=== PATIENT | female | born 1945 | race Caucasian/White ===

== ENCOUNTER 2025-02-03 17:08 | Emergency (ER) | payer MEDICARE, SELFPAY ==
--- NOTE | 2025-02-03 17:15 | ECG_ITS ---
Test Date: 2025-02-03 17:21:38 Measurements Intervals [place] Rate: 71 P: 87 OH: 173 QRS: 28 QRSD: 88 T: 60 QT: 351 QTc: 381 Interpretive Statements SINUS RHYTHM WITH SINUS ARRHYTHMIA BASELINE ARTIFACT- I, II, III, AVR, AVL, AVF, V4 NORMAL ECG No previous ECG available for comparison Electronically Signed On 02-03-2025 20:33:56 RELIGION DEPARTMENT CHAIR by Conrad Bowie D.O.
[2025-02-03 17:26] VITALS: BP 144/76; PULSE 80; RESP 20; TEMP 36.7; O2SAT 96
--- NOTE | 2025-02-03 17:36 | ED_ITS ---
HPI - SOB/Dyspnea General Chief Complaint: Shortness of Breath/Dyspnea Stated Complaint: Fever/Dizziness/Shortness of Breath Time Seen by Provider: 02/03/25 17:15 Source: patient and RN notes reviewed Mode of arrival: ambulatory Limitations: no limitations History of Present Illness HPI Narrative: 80-year-old female presents Express Care complaining of shortness of breath approximately 3 weeks. Patient says not getting much better, she says is worse with exertion. Denies any chest pain. Patient reports a mild cough, dizziness, feeling off balance and feverish. Patient denies any palpitations, lightheadedn ess, loss of consciousness, abdominal pain, nausea vomiting, diarrhea, any other upper respiratory symptoms, any other complaints. Has a history of hypertension, acid reflux. Related Data Home Medications ?Medication ?Instructions ?Recorded ?Confirmed ?Last Taken ?Type buspirone 10 mg tablet mg 02/03/25 Unknown History citalopram 20 mg tablet mg 02/03/25 Unknown History famotidine 20 mg tablet mg 02/03/25 Unknown History fluticasone propionate 50 intranasal 02/03/25 Unknown History mcg/actuation nasal spray,suspension hydrochlorothiazide 25 mg tablet mg 02/03/25 Unknown History lisinopril 5 mg tablet mg 02/03/25 Unknown History pantoprazole 40 mg tablet,delayed mg PO 02/03/25 Unkn own History release Allergies Allergy/AdvReac Type Severity Reaction Status Date / Time naproxen Allergy Unknown Rash Verified 02/03/25 17:11 No Known Allergies Allergy Unverified 02/29/16 17:16 Review of Systems Review of Systems: CONSTITUTIONAL: Positive for tactile fevers. Negative for body aches, chills, or sweats. EYES: Denies visual changes, redness, or discharge. ENT: Denies rhinorrhea, congestion, sore throat, or otalgia. CARDIOVASCULAR: Denies chest pain, palpitations, chest pain with exertion, lightheadedness, or edema. Positive for dizziness RESPIRATORY: Positive for cough and dyspnea with exertion. GASTROINTESTINAL: Denies abdominal pain, nausea, vomiting, or diarrhea. GENITOURINARY: Denies dysuria or hematuria. SKIN: Denies rash or itching. MUSCULOSKELETAL: Denies back pain, joint pain, or myalgia. NEUROLOGIC: Denies headache, numbness, or weakness. PSYCHIATRIC: Denies anxiety or depression. All other systems reviewed are negative, except as documented in HPI. PMFSH Social History Social History Smoking status: Never smoker Alcohol intake: never Comments At the time of my signature, I reviewed and agree with the nursing past medical, surgical, social, and family history. There is no relevant family history pertinent to the patient complaint. Exam Narrative: GENERAL: This is a well-nourished, well-developed adult, in no apparent distress. They are non ill-appearing, nontoxic appearing. HEAD: normocephalic, atraumatic. EYES: Sclera clear/white. Conjunctiva normal. Vision is grossly intact. Extraocular movements intact EARS: External ears normal,. Hearing grossly intact. NOSE: External nose normal THROAT: Mucous membranes moist, NECK: Neck supple, CARDIOVASCULAR: Regular rate and rhythm without murmurs, gallops, or rubs. RESPIRATORY: Clear to auscultation. Breath sounds equal bilaterally. No wheezes, rales, or rhonchi. SKIN: warm, Dry, intact with no suspicious lesions or rash, good texture and turgor. NEURO: awake, alert, and oriented to person, place and time. There were no obvious focal neurologic abnormalities. EXTREMITIES: No joint tenderness, effusion, or edema noted. BACK: Nontender without deformity. Course Course Level of Care: Express Care Visit Vital Signs Vital signs: Vital Signs Temperature 98.1 F 02/03/25 17:26 Pulse Rate 80 02/03/25 17:26 Respiratory Rate 20 02/03/25 17:26 Blood Pressure 144/76 H 02/03/25 17:26 Pulse Oximetry 96 02/03/25 17:26 Oxygen Delivery Room Air 02/03/25 17:26 Temperature 98.1 F 02/03/25 17:26 Pulse Rate 80 02/03/25 17:26 Respiratory Rate 20 02/03/25 17:26 Blood Pressure 144/76 H 02/03/25 17:26 Pulse Oximetry 96 02/03/25 17:26 Oxygen Delivery Room Air 02/03/25 17:26 Transfer Transfered to: [facility] Transportation: Other (Private vehicle) Transfer rationale: Shortness of breath, dizziness, fevers, cough, patient requires higher level care. Accepting physician: Dr. Taylor [facility] Narrative Medical decision making narrative: Patient's lung sounds are clear to auscultation, patient is in no apparent distress, no respiratory distress, vital signs hemodynamically stable, no hypoxia, patient nontoxic-appearing. EKG sinus rhythm with a sinus arrhythmia, no ischemic findings. Given patient's symptoms, it is recommend the patient seek a higher level care and proceed immediately to the emergency department. Patient has agreed to go to [facility] ER. Call over to [facility] ER and spoke to Tyron Keith who is aware this patient and Dr. Taylor who accepted the patient for transfer. Patient advised to remain NPO proceed immediately to the ER. Offered patient EMS and she declined stating her daughter were take her to the hospital via private vehicle. Differential Diagnosis Differential Diagnosis: Pneumonia, congestive heart failure, pulmonary embolism ECG Data EKG #1: Attestation: I personally reviewed and interpreted this ECG as follows: ECG completion date: 02/03/25 ECG completion time: 17:21 Prior ECG tracings: not available for review normal rate, sinus rhythm, no ectopy, normal QRS, normal QT, NL axis and other (Sinus arrhythmia) Critical Care Time Critical Care Time Critical Care Time: No Discharge Plan Discharge Clinical Impression: Dyspnea on exertion Patient Disposition: Acute Care Hospital Condition: Stable Patient Language: Swiss Prescriptions: No Action citalopram 20 mg tablet famotidine 20 mg tablet pantoprazole 40 mg tablet,delayed release (DR/EC) PO buspirone 10 mg tablet lisinopril 5 mg tablet hydrochlorothiazide 25 mg tablet fluticasone propionate 50 mcg/actuation spray,suspension INTRANASAL Follow-up/Referrals: Marv,Vinod Moy MD [Primary Care Provider, Unknown] Time of Disposition: 17:30
--- OUTSIDE RECORDS SUMMARY | 2025-02-03 19:28 | XMS_ITS | Encounter Summary ---
Author Organization [facility] Address [address] [place] [id number] Phone Care Team Providers Care Forms Analyst Name Role Phone Vinod Fair MD Primary Care Provider [phone] Reason for Visit * Reason Comments Medication Refill Encounter Details Date Type Department Care Team (Late st Contact Info) Description 05/06/2023 Refill [facility] - Internal Medicine - [place] [address] [address] Vinod Fair MD [address] [place] [address] Medication Refill Social History Tobacco Use Types Packs/Day Years Used Date Smoking Tobacco: Never Passive Smoke Exposure: Never Smokeless Tobacco: Never Alcohol Use Standard Drinks/Week Comments Not Currently 0 (1 standard drink = 0.6 oz pur e alcohol) [facility] Utilities Answer Date Recorded In the past 12 months has [employer], gas, oil, or water [employer] threatened to shut off services in your home? Patient declined 03/03/2023 Social Connection and Isolation Panel Answer Date Recorded In a typical week, how many times do you talk on the phone with family, friends, or neighbors? Patient declined 03/03/2023 How often do you get togethe r with friends or relatives? Patient declined 03/03/2023 How often do you attend sabianist or hoahaoism serv ices? Patient declined 03/03/2023 Do you belong to any clubs o r organizations such as sabianist groups, unions, fraternal or athletic groups, or school groups? Patient declined 03/03/2023 How often do you attend meet ings of the clubs or organizations you belong to? Patient declined 03/03/2023 Are you , , di vorced, , never , or living with a partner? Patient declined 03/03/2023 AUDIT-C Answer Date Recorded Q1: How often do you have a drink containing alc ohol? Patient declined 03/03/2023 Q2: How many drinks containi ng alcohol do you have on a typical day when you are drinking? Patient declined 03/03/2023 Q3: How often do you have si x or more drinks on one occasion? Patient declined 03/03/2023 Overall Financial Resource Strain (CARDIA) Answe r Date Recorded How hard is it for you to pa y for the very basics like food, housing, medical care, and heating? Patient declined 03/03/2023 PHQ-2 Answer Date Recorded Total Score - Questions 1-9 0 09/2023 [facility] - Occupational Stress Questionnaire Answer Date Recorded Do you feel stress - tense, restless, nervous, or anxious, or unable to sleep at night because your mind is troubled all the time - these days? Patient declined 03/03/2023 Exercise Vital Sign Answer Date Recorde d On average, how many days pe r week do you engage in moderate to strenuous exercise (like a brisk walk)? Patient declined On average, how many minutes do you engage in exercise at this level? Patient declined 03/03/2023 Hunger Vital Sign Answer Date Recorded Within the past 12 months, y ou worried that your food would run out before you got the money to buy more. Patient declined Within the past 12 months, t he food you bought just didn't last and you didn't have money to get more. Patient declined 09/2023 PRAPARE - Transportation Answer Date Re corded In the past 12 months, has l ack of transportation kept you from medical appointments or from getting medications? Patient declined 03/03/2023 In the past 12 months, has l ack of transportation kept you from meetings, work, or from getting things needed for daily living? Patient declined 03/03/2023 Housing Stability Vital Sign Answer Antonio e Recorded In the last 12 months, was t here a time when you were not able to pay the mortgage or rent on time? Patient declined 03/03/19 24 Number of Places Lived in the Last Year Not on f ile 03/03/2023 In the last 12 months, was t here a time when you did not have a steady place to sleep or slept in a retirement (including now)? Patient declined 03/03/2023 Sexually Active Control Partners Comments Not Currently Comments No Sex and Gender Information Value Date Recorded Sex Assigned at Not on file Legal Sex Female 10:36 PM CDT Gender Identity Not on file Sexual Orientation Not on file documented as of this encounter Miscellaneous Notes * Telephone Encounter - Luz Maria De León RN - 05/06/2023 10:33 AM CDT Medication(s) refilled and signed per [facility] Chronic Medication Refill Standing Order for Pediatricand Adult Patients. Requested Prescriptions Pending Prescriptions Disp Refills fluticasone (FLONASE) 50 MCG/ACT Suspension [Pharmacy Med Name: FLUTICASONE PROP 50 MCG SPRAY] 48 mL 0 Sig: SPRAY 1 SPRAY IN EACH NOSTRIL TWICE A DAY DIRECTED Nasal Steroids Protocol Passed - 05/06/2023 10:32 AM Passed - Visit with relevant provider in past 12 months or upcoming 90 days Recent Visits Date Type Provider Dept 03/03/23 Office Visit Vinod Fair MD [facility] [place] 11/20/22 Office Visit Vinod Fair MD [facility] [place] 05/29/22 [facility] [place] Showing recent visits within past 365 days and meeting all other requirements Future Appointments Date Type Provider Dept 06/02/23 Appointment Vinod Fair MD [facility] [place] Showing future appointments within next 90 days and meeting all other requirements documented in this encounter Plan of Treatment Upcoming Encounters Date Type Department Care Team (Late st Contact Info) Description 07/04/2025 10:00 AM CDT Office Visit [facility] - Primary Care - [place] [address] [place] [address] Vinod Fair MD [address] [place] [address] documented as of this encounter Visit Diagnoses Not on filedocumented in this encounter Additional Health Concerns Assessment Noted Time PHQ-9 Depression Total Score: 0 03/03/19 24 8:37 AM [facility] documented as of this encounter Care Teams Forms Analyst Relationship Specialty Start Date End Date Vinod Fair MD PCP - General Internal Medicine 05/01/19 documented as of this encounter
--- OUTSIDE RECORDS SUMMARY | 2025-02-03 19:28 | XMS_ITS | Clinical Summary ---
Author Organization [facility] Address [address] [place] [address] Phone Care Team Providers Care Staff Reporter Name Role Phone Vinod Fair MD Primary Care Provider [phone] Allergies Active Allergy Reactions Criticality Noted Date Comments Naproxen Unknown Medications Aspirin 81 MG Tablet daily. Active pantoprazole (PROTONIX) 40 MG Tablet Delayed Response TAKE 1 TABLET BY MOUTH EVERY DAY 90 Tablet 1 09/30/2024 Active lisinopril (PRINIVIL, ZESTRIL) 5 MG Tablet Take 1 Tablet by mouth daily. 90 Tablet 1 09/30/2024 Active famotidine (PEPCID) 20 MG Tablet Take 1 Tablet by mouth every evening. 90 Tablet 1 09/30/2024 Active citalopram (CeleXA) 20 MG Tablet Take 1 Tablet by mouth daily. 90 Tablet 1 09/30/2024 Active busPIRone (BUSPAR) 10 MG Tablet TAKE 1 TABLET BY MOUTH TWICE A DAY 60 Tablet 2 12/30/2024 Active hydroCHLOROthia zide 25 MG Tablet Take 1 Tablet by mouth daily. 90 Tablet 1 01/03/2025 Active fluticasone (FLONASE) 50 MCG/ACT Suspension 1 [place] by Nasal route daily. Use in each nostril as directed. 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 10/01/19 25 Generalized anxiety disorder 04/17/2020 Dysthymic disorder 01/17/2020 GERD without esophagitis 01/17/2020 Essential hypertension, benign Degenerative joint disease Resolved Problems Problem Noted Date Diagnosed Date Resolved Date Allergic rhinitis 04/01/2024 09/30/2024 Anemia 09/30/2024 Encounters Date Type Department Care Team Description 01/03/2025 10:20 AM PROGRAM MANAGER RN Office Visit [facility] [place] [place] [phone] Vinod Fair MD Essential hypertension, benign (Primary Dx); GERD without esophagitis; Dysthymic disorder; Generalized anxiety disorder Discharge Disposition: Discharged to home or Selfcare 01/03/2025 Travel 12/30/2024 9:20 AM PROGRAM MANAGER RN Lab [place] [address] [place] [phone] Essential hypertension, benign Discharge Disposition: Discharged to home or Selfcare 12/30/2024 Results Follow-Up [place] [address] [place] [phone] Vinod Fair MD CMP (COMPREHENSIVE METABOLIC PANEL), LIPID PANEL 12/30/2024 Travel 12/29/2024 Refill [facility] [address] [place] [phone] Chrissy Witt, [facility] Medication Refill 11/26/2024 Telephone [facility] [address] [place] [phone] Vinod Fair MD Medication Management from Last 3 Months Immunizations Immunization Administration Dates Next Due Covid-19, Mrna, Lnp-s, Pf, 3 0 Mcg/0.3 Ml Dose (Züm XR) 06/17/2020,05/27/2020 Influenza Vaccine greater than 3 yrs 11/10/2018 Influenza Vaccine, Quadrivalent, PF 08/2021,10/26/2020,01/17/2020,2014 Influenza, Quadrivalent, Adjuvanted 11/20/2022 Influenza, Seasonal, Injecta ble, Undefined 11/10/2018,12/15/2012 Influenza, Trivalent, Adjuvanted, PF 04/01/2024 Pneumococcal Vaccine - 13 Valent 10/21/2017,11/25 Zoster Vaccine, live 12/15/2012 Family History Medical History Relation Name Comments Heart Disease Mother No Known Problems Sister Relation Name Status Comments Father Mother Sister Alive Social History Tobacco Use Types Packs/Day Years Used Date Smoking Tobacco: Never Passive Smoke Exposure: Never Smokeless Tobacco: Never Tobacco Cessation:Counseling Given: No Alcohol Use Standard Drinks/Week Comments Not Currently 0 (1 standard drink = 0.6 oz pur e alcohol) [facility] Utilities Answer Date Recorded In the past 12 months has e [place], gas, oil, or water [employer] threatened to shut off services in your home? Patient declined 03/03/2023 Social Connection and Isolation Panel Answer Date Recorded In a typical week, how many times do you talk on the phone with family, friends, or neighbors? Patient declined 03/03/2023 How often do you get togethe r with friends or relatives? Patient declined 03/03/2023 How often do you attend zoroastrianism or episcopalian serv ices? Patient declined 03/03/2023 Do you belong to any clubs o r organizations such as zoroastrianism groups, unions, fraternal or athletic groups, or [...] Recorded Total Score - Questions 1-9 0 12/25 [facility] - Occupational Stress Questionnaire Answer Date Recorded [...] place to sleep or slept in a senior living (including now)? Patient declined 03/03/2023 Sexually Active Control Partners Comments Not Currently Comments No Sex and Gender Information Value Date Recorded Sex Assigned at Not on file Legal Sex Female 10:36 PM CDT Gender Identity Not on file Sexual Orientation Not on file Last Filed Vital Signs Vital Sign Reading Time Taken Comments Blood Pressure 130/68 01/03/2025 10:14 AM PROGRAM MANAGER RN Pulse 62 01/03/2025 10:14 AM PROGRAM MANAGER RN Temperature 36.3 C (97.4 F) 01/03/2025 10:14 AM PROGRAM MANAGER RN Respiratory Rate 12 09/30/2024 3:41 PM CDT Oxygen Saturation 98% 01/03/2025 10:14 AM PROGRAM MANAGER RN Inhaled Oxygen Concentration - - Weight 103.4 kg (228 lb) 01/03/2025 10:14 AM PROGRAM MANAGER RN Height 167.6 cm (5' 6) 01/03/2025 10:14 AM PROGRAM MANAGER RN Body Mass Index 36.8 01/03/2025 10:14 AM PROGRAM MANAGER RN Plan of Treatment Upcoming Encounters Date Type Department Care Team (Late st Contact Info) Description 07/04/2025 10:00 AM CDT Office Visit [facility] - [facility] Care - [place] [address] [place] [address] Vinod Fair MD [address] [place] [address] Health Maintenance Due Date Last Done Comments Hepatitis C Virus (HCV) Screening 1945 TdaP Immunization 1945 Zoster Immunization (2 of 3) 02/09/2013 12/15/2012 DEXA Bone Density 11/25/2019 11/24/2017 Respiratory Syncytial Virus (RSV) Immunization (Adult) (1 - 1-dose 75+ series) 2021 Medicare Initial AWV [id number] 02/24/2022 Influenza Immunization (#1) 2024 02/0 07/2024, 11/20/2022, 10/31/2021, Additional history exists SARS-COV-2 Immunization (3 - 2024- season) 2024 06/17/2020, 05/27/2020 Pneumococcal Immunization (50+ years) Discontinued 10/21/2017, 12/15/2012 Pneumococcal Immunization Combined Discontinued 10/21/2017, 12/15/2012 Cologuard Discontinued 11/15/2020 Colorectal Cancer Screening Discontinued Mammogram Discontinued 09/22/2021, 07, 12/10/2019, Additional history exists Colonoscopy Discontinued Hepatitis B Immunization Aged Out No longer eligible based on patient's age to complete this topic Human Papillomavirus (HPV) Immunization (No Doses Required) Completed Immunochemical Fecal Occult Blood Discontinued Meningococcal Immunization (ACWY) Aged Out No longer eligible based on patient's age to complete this topic Rotavirus Immunization Aged Out No lo nger eligible based on patient's age to complete this topic Procedures Procedure Name Priority Date/Time Associated Diagnosis Comments LIPID PANEL Routine 12/30/2024 9:08 AM PROGRAM MANAGER RN Essential hypertension, benign CMP (COMPREHENSIVE METABOLIC PANEL) Routine 12/30/2024 9:08 AM PROGRAM MANAGER RN Essential hypertension, benign MAMMOGRAM BILATERAL GENERIC 09/22/2021 12:00 AM CDT COLOGUARD Routine 11/15/2020 4:15 PM CDT Screening for colorectal cancer from Last 3 Months or Most Recently Relevant to Health Maintenance Results * LIPID PANEL (12/30/2024 9:08 AM PROGRAM MANAGER RN) CHOLESTEROL 164 <200 mg/dL 12/30/2024 1:42 PM PROGRAM MANAGER RN [facility] TRIGLYCERIDES 101 <150 mg/dL 12/30/2024 1:42 PM PROGRAM MANAGER RN [facility] HDL CHOLESTEROL 57 >40 mg/dL 1:42 PM PROGRAM MANAGER RN [facility] LDL 87 <130 mg/dL 12/30/2024 1:42 PM PROGRAM MANAGER RN [facility] VLDL 20 10 - 50 mg/dL 12/30/2024 1:42 PM PROGRAM MANAGER RN [facility] CHOL/HDL RATIO 2.9 0.0 - 4.4 12/30/2024 1:42 PM PROGRAM MANAGER RN [facility] NON-HDL CHOLESTEROL 107 <130 mg/dL 12/30/2024 1:42 PM PROGRAM MANAGER RN [facility] Blood Venipuncture / Unknown 12/30/2024 9:08 AM PROGRAM MANAGER RN 12/30/2024 9:08 AM PROGRAM MANAGER RN us Vinod Fair MD CHEMISTRY ORDERABLES Final Result [facility] [address] [place] [address] * (ABNORMAL) CMP (COMPREHENSIVE METABOLIC PANEL) (12/30/2024 9:08 AM PROGRAM MANAGER RN) SODIUM 143 136 - 145 mmol/L 12/30/2024 1:42 PM [facility] POTASSIUM 4.0 3.5 - 5.1 mmol/L 12/30/2024 1:42 PM [facility] CHLORIDE 104 98 - 107 mmol/L 12/30/2024 1:42 PM [facility] CO2, VENOUS 29 22 - 30 mmol/L 12/30/2024 1:42 PM [facility] ANION GAP 14.0 <18.0 mmol/L 12/30/2024 1:42 PM [facility] GLUCOSE 100(H) 70 - 99 mg/dL 12/30/2024 1:42 PM [facility] BUN 24(H) 10 - 20 mg/dL 12/30/2024 1:42 PM [facility] CREATININE, BLOOD 0.94 0.60 - 1.00 mg/dL 12/30/2024 1:42 PM [facility] BUN/CREATININE RATIO 26(H) 12 - 20 ratio 12/30/2024 1:42 PM [facility] TOTAL PROTEIN 7.4 6.0 - 8.0 g/dL 12/30/2024 1:42 PM [facility] ALBUMIN 4.3 3.5 - 5.0 g/dL 12/30/2024 1:42 PM [facility] A/G RATIO 1.4 1.0 - 2.2 12/30/2024 1:42 PM [facility] CALCIUM 9.7 8.7 - 10.5 mg/dL 12/30/2024 1:42 PM [facility] T BILI 0.4 0.2 - 1.2 mg/dL 12/30/2024 1:42 PM [facility] SGOT (AST) 24 <43 U/L 12/30/2024 1:42 PM [facility] SGPT (ALT) 15 <56 U/L 12/30/2024 1:42 PM [facility] ALKALINE PHOSPHATASE 57 40 - 150 U/L 12/30/2024 1:42 PM PROGRAM MANAGER RN [facility] IS THE PATIENT REQUIRED TO BE FASTING? Yes 12/30/2024 1:42 PM [facility] HAS THE PATIENT BEEN FASTING? Yes 12/30/2024 1:42 PM PROGRAM MANAGER RN [facility] GFR, ESTIMATED >60 >=60 12/30/2024 1:42 PM [facility] Comment: Creatinine Clearance is the preferred criteria for selecting drug dose adjustments in renally impaired patients. The GFR is provided as additional pertinent clinical information. GFR is reported in mL/min/1.73 sq m. Calculation based on the 2020 Chronic Kidney Disease Epidemiology Collaboration (CKD-EPI) equation refit without adjustment for race. GFR, EST. >60 >=60 025 1:42 PM [facility] Comment: Creatinine Clearance is the preferred criteria for selecting drug dose adjustments in renally impaired patients. The GFR is provided as additional pertinent clinical information. GFR is reported in mL/min/1.73 sq m. Calculation based on the 2009 Chronic Kidney Disease Epidemiology Collaboration (CKD-EPI). GFR, EST. NONAFRICAN 58(L) >=60 12/30/2024 1:42 PM [facility] Comment: Creatinine Clearance is the preferred criteria for selecting drug dose adjustments in renally impaired patients. The GFR is provided as additional pertinent clinical information. GFR is reported in mL/min/1.73 sq m. Calculation based on the 2009 Chronic Kidney Disease Epidemiology Collaboration (CKD-EPI). Blood Venipuncture / Unknown 12/30/2024 9:08 AM PROGRAM MANAGER RN 12/30/2024 9:08 AM PROGRAM MANAGER RN us Vinod Fair MD CHEMISTRY ORDERABLES Final Result [facility] [address] [place] [address] * MAMMOGRAM BILATERAL MISCELLANEOUS (09/22/2021 12:00 AM CDT) 09/22/2021 us Not On File Provider IMG MAMMO ORDERABLES Final Result SCAN * COLOGUARD (11/15/2020 4:15 PM CDT) Cologuard Negative Negative [facility] Comment: NEGATIVE TEST RESULT. A negative Cologuard result indicates a low likelihood that a colorectal cancer (CRC) or advanced adenoma (adenomatous polyps with more advanced pre-malignant features) is present. The chance that a person with a negative Cologuard test has a colorectal cancer is less than 1 in 1500 (negative predictive value >99.9%) or has an advanced adenoma is less than 5.3% (negative predictive value 94.7%). These data are based on a prospective cross-sectional study of 10,000 individuals at average risk for colorectal cancer who were screened with both Cologuard and colonoscopy. (Jenny Roy et al, N Engl J Med 2014;370(14):2393-6497) The normal value (reference range) for this assay is negative. COLOGUARD RE-SCREENING RECOMMENDATION: Periodic colorectal cancer screening is an important part of preventive healthcare for asymptomatic individuals at average risk for colorectal cancer. Following a negative Cologuard result, the [place] Cancer Society and U.S. Multi-Society Task Force screening guidelines recommend a Cologuard re-screening interval of 3 years. References: [place] Cancer Society Guideline for Colorectal Cancer Screening: https://www.cancer.org/cancer/wxbet-rpperu-hoybfh/kxtojtqdb-qiqkwbtmg-jpndtqf/ acs-recommendations.html.; Salty GARCIA, Akilah MOSLEY, Sushila BarnhartK, Colorectal Cancer Screening: Recommendations for Physicians and Patients from the U.S. Multi-Society Task Force on Colorectal Cancer Screening , Am J Gastroenterology 2017; 112:8639-3937. TEST DESCRIPTION: Composite algorithmic analysis of stool DNA-biomarkers with hemoglobin immunoassay. Quantitative values of individual biomarkers are not reportable and are not associated with individual biomarker result reference ranges. Cologuard is intended for colorectal cancer screening of adults of either sex, 45 years or older, who are at average-risk for colorectal cancer (CRC). Cologuard has been approved for use by the U.S. FDA. The performance of Cologuard was established in a cross sectional study of average-risk adults aged 50-84. Cologuard performance in patients ages 45 to 49 years was estimated by sub-group analysis of near-age groups. Colonoscopies performed for a positive result may find as the most clinically significant lesion: colorectal cancer [4.0%], advanced adenoma (including sessile serrated polyps greater than or equal to 1cm diameter) [20%] or non- advanced adenoma [31%]; or no colorectal neoplasia [45%]. These estimates are derived from a prospective cross-sectional screening study of 10,000 individuals at average risk for colorectal cancer who were screened with both Cologuard and colonoscopy. (Jenny Garcia. et al, N Engl J Med 2014;370(14):8536-8572.) Cologuard may produce a false negative or false positive result (no colorectal cancer or precancerous polyp present at colonoscopy follow up). A negative Cologuard test result does not guarantee the absence of CRC or advanced adenoma (pre-cancer). The current Cologuard screening interval is every 3 years. ([place] Cancer Society and U.S. Multi-Society Task Force). Cologuard performance data in a 10,000 patient pivotal study using colonoscopy as the reference method can be accessed at the following location: www.[employer]/results. Additional description of the Cologuard test process, warnings and precautions can be found at www.cologuard.com. Stool 11/15/2020 4:15 PM CDT 11/17/2020 12:07 PM CDT us Vinod Fair MD BODY FLUIDS & STOOLS ORDERA BLES Final Result [facility] [address] [place] [address], [facility] [address] [place] [address] from Last 3 Months or Most Recently Relevant to Health Maintenance Insurance MEDICARE C [employer]ET[employer] Care Teams Staff Reporter Relationship Specialty Start Date End Date Vinod Fair MD PCP - General Internal Medicine 05/01/19
--- OUTSIDE RECORDS SUMMARY | 2025-02-03 19:28 | XMS_ITS | Encounter Summary ---
Author Organization [facility] Address [address] [place] [id number] Phone Care Team Providers Care Color Mixer Name Role Phone Vinod Fair MD Primary Care Provider [phone] Reason for Visit * Reason Comments Medication Refill Encounter Details Date Type Department Care Team ([facility] Contact Info) Description 02/27/2021 Refill [facility] - [facility] - [place] [address] [place] [address] Vinod Fair MD [address] [place] [address] Medication Refill Social History Tobacco Use Types Packs/Day Years Used Date Smoking Tobacco: Never Smokeless Tobacco: Never Alcohol Use Standard Drinks/Week Comments Not Currently 0 (1 standard drink = 0.6 oz pur e alcohol) PHQ-2 Answer Date Recorded Total Score - Questions 1-9 3 04/2020 Sexually Active Control Partners Comments Not Currently Comments No Sex and Gender Information Value Date Recorded Sex Assigned at Not on file Legal Sex Female 10:36 PM CDT Gender Identity Not on file Sexual Orientation Not on file documented as of this encounter Plan of Treatment Upcoming Encounters Date Type Department Care Team ([facility] Contact Info) Description 07/04/2025 10:00 AM CDT Office Visit [facility] - [facility] - [place] [address] [place] [address] Vinod Fair MD [address] [place] [address] documented as of this encounter Visit Diagnoses Not on filedocumented in this encounter Additional Health Concerns Assessment Noted Time PHQ-9 Depression Total Score: 3 01/27/20 21 9:00 AM ELECTRONIC WARFARE TECHNICIAN documented as of this encounter Care Teams Color Mixer Relationship Specialty Start Date End Date Vinod Fair MD PCP - General Internal Medicine 05/01/19 documented as of this encounter
--- OUTSIDE RECORDS SUMMARY | 2025-02-03 19:28 | XMS_ITS | Encounter Summary ---
Author Organization [facility] Address [address] [place] [address] Phone Care Team Providers Care Electronics System Mechanic Name Role Phone Vinod Fair MD Primary Care Provider [phone] Reason for Visit * Reason Comments Medication Refill Encounter Details Date Type Department Care Team ([facility] st Contact Info) Description 06/20/2021 [facility]ill [facility] - [place] [address] [place] [address] Vinod Fair MD [address] [place] [address] Medication Refill Social History Tobacco Use Types Packs/Day Years Used Date Smoking Tobacco: Never Smokeless Tobacco: Never Alcohol Use Standard Drinks/Week Comments Not Currently 0 (1 standard drink = 0.6 oz pur e alcohol) PHQ-2 Answer Date Recorded Total Score - Questions 1-9 0 03/0 05/2021 Sexually Active Control Partners Comments Not Currently Comments No Sex and Gender Information Value Date Recorded Sex Assigned at Not on file Legal Sex Female 10:36 PM CDT Gender Identity Not on file Sexual Orientation Not on file documented as of this encounter Miscellaneous Notes * Telephone Encounter - Carole Rich RN - 06/20/2021 1:35 PM CDT Medication failed the protocol, provider to review and approve the medication order if appropriate. Requested Prescriptions Pending Prescriptions Disp Refills tiZANidine (ZANAFLEX) 2 MG Tablet [Pharmacy Med Name: TIZANIDINE HCL 2 MG TABLET] 45 Tablet 0 Sig: TAKE 1 TABLET BY MOUTH THREE TIMES A DAY NEEDED FOR MUSCLE SPASMS Not Delegated - Muscle Relaxants Protocol Failed - 06/20/2021 1:32 PM Failed - This refill cannot be delegated Failed - Not delegated, patient not between 1 and 65 years of age Passed - Visit with relevant provider in past 12 months or upcoming 90 days Recent Visits Date Type Provider Dept 04/27/21 Office Visit Vinod Fair MD [facility] 01/26/21 Office Visit Vinod Fair MD [facility] 10/26/20 Office Visit Vinod Fair MD [facility] 07/27/20 Office Visit Vinod Fari MD [facility] Showing recent visits within past 365 days and meeting all other requirements Future Appointments Date Type Provider Dept 08/01/21 Appointment Vinod Fair MD [facility] Showing future appointments within next 90 days and meeting all other requirements Passed - ALT less than 90 and AST less than 55 on record in past 12 months SGOT (AST) Date Value Ref Range Status 04/27/2021 22 <=32 U/L Final SGPT (ALT) Date Value Ref Range Status 04/27/2021 18 <=41 U/L Final documented in this encounter Plan of Treatment Upcoming Encounters Date Type Department Care Team (Late st Contact Info) Description 07/04/2025 10:00 AM CDT Office Visit [facility] - [facility] Care - [place] [address] [place] [phone] Vinod Fair MD [address] [place] [address] documented as of this encounter Visit Diagnoses Not on filedocumented in this encounter Additional Health Concerns Assessment Noted Time PHQ-9 Depression Total Score: 3 01/27/20 21 9:00 AM POLISHER IMPLANT documented as of this encounter Care Teams Electronics System Mechanic Relationship Specialty Start Date End Date Vinod Fair MD PCP - General Internal Medicine 05/01/19 documented as of this encounter
== END 2025-02-03 17:44 | disposition short-term general hospital (02) ==
PROVIDERS: PCP Internal Medicine
DX: R06.00 Dyspnea, unspecified (principal); I10 Essential (primary) hypertension; Z79.899 Other long term (current) drug therapy
CPT/HCPCS: 93005; 99213; G0463